=== PATIENT | female | born 1995 | race Caucasian/White ===

== ENCOUNTER 2020-10-19 12:12 | Outpatient (CLI) | payer OTHER ==
[~2020-10-19] VITALS: Ht 170.2 cm; Wt 69.5 kg
[~2020-10-19 12:12] MED LIST: CIPR500T4 PO; ETHI1TAB12 PO; MINO100T2 PO
[2020-10-19] MEDS ORDERED: LACTATED RINGERS 1,000 ML IVBOLUS ONE (13:00)
[2020-10-19] MEDS ORDERED: PLEASE ENTER HEIGHT AND WEIGHT MC SCH (13:00)
[2020-10-19] MEDS ORDERED: LACTATED RINGERS 1,000 ML IV SCH (13:00)
== END 2020-10-19 15:15 | disposition home or self-care (01) ==
LOC: LDOP 12:12
PROVIDERS: ATTEND Obstetrics & Gynecology
DX: O46.90 Antepartum hemorrhage, unspecified, unspecified trimester (principal); Z3A.00 Weeks of gestation of pregnancy not specified
CPT/HCPCS: 59025; 76815; 96360; 96361; J7120

== ENCOUNTER 2021-01-03 06:56 | Inpatient (IN) | payer OTHER ==
[~2021-01-03] VITALS: Ht 170.2 cm; Wt 76.3 kg
[2021-01-03 07:15] VITALS: BP 132/103
[2021-01-03] MEDS ORDERED: OXYTOCIN 30U/ 0.9% NaCL 500ML 500 ML IV ONE (08:00)
[2021-01-03] MEDS ORDERED: OXYTOCIN 30U/ 0.9% NaCL 500ML 500 ML IV PRN (08:00)
[2021-01-03] MEDS ORDERED: TERBUTALINE 1 MG/ML, 1ML IVPush PRN (08:00)
[2021-01-03] MEDS ORDERED: FENTANYL PF 100 MCG/2ML IVPush PRN (08:00)
[2021-01-03] MEDS ORDERED: D5%-LACTATED RINGERS 1,000 ML IV SCH (08:00)
[2021-01-03] MEDS ORDERED: TERBUTALINE 1 MG/ML, 1ML SQ PRN (08:00)
[2021-01-03] MEDS ORDERED: ONDANSETRON 2MG/ML, 2ML IVPush PRN (08:00)
[2021-01-03] MEDS ORDERED: LACTATED RINGERS 1,000 ML IV SCH ×2 (08:00→15:30)
[2021-01-03] MEDS ORDERED: FENTANYL PF 100 MCG/2ML IV PRN (08:00)
[2021-01-03] MEDS ORDERED: NEWBORN KIT ONE (08:08)
[2021-01-03] MEDS ORDERED: OXYTOCIN 30U/ 0.9% NaCL 500ML 500 ML ONE (08:08)
[2021-01-03 08:47] LABS: BASOPHILS % (AUTO) 0 % (0-1); EOSINOPHILS % (AUTO) 1 % (1-7); LYMPHOCYTES % (AUTO) 16 % (22-44); MEAN CORPUSCULAR HEMOGLOBIN 28.7 pg (27.0-34.8); MEAN CORPUSCULAR HGB CONC 34.1 g/dL (32.4-35.8); MEAN PLATELET VOLUME 10.5 fL (7.4-10.4); MONOCYTES % (AUTO) 10 % (2-9); NEUTROPHILS % (AUTO) 74 % (42-75); PLATELET COUNT 149 x10^3/uL (130-400); RED BLOOD COUNT 3.46 x10^6/uL (3.82-5.3); RED CELL DISTRIBUTION WIDTH 13.6 % (9.6-15.2)
[2021-01-03 08:58] LABS: ALBUMIN 2.4 g/dL (3.4-5.0); ANION GAP 8 mmol/L (5-15); CALCIUM 8.2 mg/dL (8.5-10.1); CHLORIDE 109 mmol/L (98-107)
[2021-01-03 09:05] LABS: ALANINE AMINOTRANSFERASE 14 U/L (12-78); ALKALINE PHOSPHATASE 151 U/L (45-117); BILIRUBIN,TOTAL 0.6 mg/dL (0.2-1.0); CREATININE 0.67 mg/dL (0.55-1.02); TOTAL PROTEIN 6.4 g/dL (6.4-8.2)
[2021-01-03] MEDS ORDERED: BUPIVACAINE 0.25% ONE (15:26)
[2021-01-03] MEDS ORDERED: FENTANYL/BUPIV./NS/PF 250 ML EPIDCONT ONE (15:26)
[2021-01-03] MEDS ORDERED: LACTATED RINGERS 1,000 ML IVBOLUS PRN (15:30)
[2021-01-03] MEDS ORDERED: EPHEDRINE 50 MG/ML, 1ML IVPush PRN (15:30)
[2021-01-03] MEDS ORDERED: NALOXONE 0.4 MG/ML, 1ML IVPush PRN (15:30)
[2021-01-03] MEDS ORDERED: FENTANYL/BUPIV./NS/PF 250 ML EPIDCONT SCH (15:30)
[2021-01-03 19:40] VITALS: BP 121/83
[2021-01-03] MEDS ORDERED: OXYTOCIN 30U/ 0.9% NaCL 500ML 500 ML IV SCH (21:00)
[2021-01-03] MEDS ORDERED: OXYcodone/APAP 5/325MG TABLET PO PRN (21:00)
[2021-01-03] MEDS ORDERED: SIMETHICONE 80 MG CHEW TAB PO PRN (21:00)
[2021-01-03] MEDS ORDERED: ACETAMINOPHEN 325 MG TABLET PO PRN (21:00)
[2021-01-03] MEDS ORDERED: MISOPROSTOL 200 MCG TABLET PR PRN (21:00)
[2021-01-03] MEDS: DOCUSATE 100 MG CAPSULE PO PRN (22:21)
[2021-01-03] MEDS: IBUPROFEN 600 MG TABLET PO PRN (22:21)
[2021-01-04 01:15] VITALS: BP 119/82
[2021-01-04 04:15] VITALS: BP 118/84
[2021-01-04] MEDS: IBUPROFEN 600 MG TABLET PO PRN ×2 (04:17→14:20)
[2021-01-04 04:47] LABS: BASOPHILS % (AUTO) 0 % (0-1); EOSINOPHILS % (AUTO) 0 % (1-7); LYMPHOCYTES % (AUTO) 12 % (22-44); MEAN CORPUSCULAR HEMOGLOBIN 28.2 pg (27.0-34.8); MEAN CORPUSCULAR HGB CONC 33.4 g/dL (32.4-35.8); MEAN PLATELET VOLUME 10.4 fL (7.4-10.4); MONOCYTES % (AUTO) 11 % (2-9); NEUTROPHILS % (AUTO) 76 % (42-75); PLATELET COUNT 153 x10^3/uL (130-400); RED BLOOD COUNT 2.94 x10^6/uL (3.82-5.3); RED CELL DISTRIBUTION WIDTH 13.5 % (9.6-15.2)
[2021-01-04 08:15] VITALS: BP 115/77
[2021-01-04] MEDS ORDERED: PRENATAL VIT/IRON/FA 1 EACH TABLET PO SCH (09:00)
[2021-01-04] MEDS: DOCUSATE 100 MG CAPSULE PO PRN (09:09)
[2021-01-04 12:00] VITALS: BP 110/73
[2021-01-04 16:20] VITALS: BP 128/87
[2021-01-04] MEDS ORDERED: DIPH,PERTUSS(ACELL),TET VAC/PF NC IM-VACC ONE (16:30)
[2021-01-04] MEDS ORDERED: MEASLES,MUMPS&RUBELLA VACC/PF 0.5 ML SQ-VACC ONE ×2 (17:00)
== END 2021-01-04 20:00 | disposition home or self-care (01) | DRG 807 ==
LOC: LDIP 06:56 → 2NW 21:14
PROVIDERS: ADMIT Obstetrics & Gynecology; ATTEND Obstetrics & Gynecology
PROC: 3E033VJ Introduction of Other Hormone into Peripheral Vein, Percutaneous Approach (ICD-10-PCS; principal; 2021-01-03)
PROC: 10E0XZZ Delivery of Products of Conception, External Approach (ICD-10-PCS; 2021-01-03)
PROC: 0KQM0ZZ Repair Perineum Muscle, Open Approach (ICD-10-PCS; 2021-01-03)
PROC: 3E0R3BZ Introduction of Anesthetic Agent into Spinal Canal, Percutaneous Approach (ICD-10-PCS; 2021-01-03)
PROC: 00HU33Z Insertion of Infusion Device into Spinal Canal, Percutaneous Approach (ICD-10-PCS; 2021-01-03)
DX: O69.81X0 Labor and delivery complicated by cord around neck, without compression, not applicable or unspecified (principal); Z37.0 Single live birth; Z20.822 Contact with and (suspected) exposure to COVID-19; O70.1 Second degree perineal laceration during delivery; Z3A.40 40 weeks gestation of pregnancy
CPT/HCPCS: 36415; 80053; 83615; 84550; 85025; 86592; 86850; 86900; 87635; 90707; 90715; G0378; J2590; J7120